=== PATIENT | female | born 1950 | race Caucasian/White ===

== ENCOUNTER → 2016-12-12 | Outpatient (CLI) | payer OTHER, BC ==
[~2016-12-12] MED LIST: ATV5 PO; CLID5CAP23 PO; CYCL-259 PO; EPIPEN0.3 M1 IM; FLNIN NAE; LEVO125T72 PO; LISI-461 PO; METO1TAB31 PO; MULTTAB58 PO; PRLSR20 PO; SERT-234 PO; SIMV20TA2 PO; VERA240C2 PO; ZNT/150 PO
[2016-12-12 13:46] LABS: ALT/SGPT 32 U/L (12-78); AST/SGOT 19 U/L (15-37); BASO % 0.2 %; BASO ABS # 0.02 K/uL (0-0.2); BLOOD UREA NITROGEN 16 mg/dl (7-18); BUN/CREATININE RATIO 25.6 (10-20); CALCIUM 9.6 mg/dl (8.5-10.1); CARBON DIOXIDE 29 mmol/L (21-32); CHLORIDE 106 mmol/L (98-107); COMPLETE YES; CREATININE 0.62 mg/dl (0.60-1.20); EOS % 1.1 %; GLUCOSE 101 mg/dl (70-99); HEMATOCRIT 43.2 % (37-47); IG% 0.6 %; LYMPH % 22.8 %; LYMPH ABS # 1.85 K/uL (1.2-3.4); MEAN CELL VOLUME 98.4 fL (80-100); MEAN CORPUSCULAR HEMOGLOBIN 33.7 pg (25-34); MEAN CORPUSCULAR HGB CONC 34.3 g/dl (32-36); MONO % 5.9 %; NEUT % 69.4 %; PLATELET COUNT 157 K/uL (130-400); POTASSIUM 4.4 mmol/L (3.5-5.1); RED BLOOD COUNT 4.39 M/uL (4.2-5.4); SODIUM 140 mmol/L (136-145); WHITE BLOOD COUNT 8.11 K/uL (4.8-10.8)
[2016-12-12 13:57] LABS: ALB/GLOB RATIO 1.2 (0.9-2); ALKALINE PHOSPHATASE 85 U/L (45-117); CHOLESTEROL 199 mg/dl (0-200); CHOLESTEROL/HDL RATIO 3.9; HDL CHOLESTEROL 51 mg/dl; LDL CHOLESTEROL CALCULATED 119 mg/dl; TRIGLYCERIDES 143 mg/dl (0-150); VERY LOW DENSITY LIPOPROT CALC 29 mg/dl
== END | disposition home or self-care (01) ==
LOC: C.LABBC 09:59
PROVIDERS: ATTEND Internal Medicine
DX: R00.2 Palpitations (principal); M81.0 Age-related osteoporosis without current pathological fracture

== ENCOUNTER → 2017-01-19 | Outpatient (CLI) | payer OTHER, BC ==
[~2017-01-19] MED LIST changes: +METO-478 PO; -METO1TAB31 PO
--- NOTE | 2017-01-20 08:29 | MAMMOGRAPHY REPORT ---
BILATERAL DIGITAL SCREENING MAMMOGRAM WITH CAD: 01/19/2017 CLINICAL HISTORY: Routine screening. Patient has no complaints. TECHNIQUE: Bilateral CC and MLO views were obtained. Current study was also evaluated with a Comput er Aided Detection (CAD) system. COMPARISON: Comparison is made to exams dated: 10/10/2015 mammogram, 11/17/2013 mammogram, 11/17/2013 ultrasound, 11/13/2013 mammogram, 08/29/2012 mammogram, and 08/24/2012 mammogram - [facility]. BREAST COMPOSITION: There are scattered areas of fibroglandular density in both breasts. FINDINGS: There is fluctuating nodularity in the breasts, most likely represent infiltrating cysts. There are scattered benign-appearing punctate microcalcifications. No suspicious mass, architectur al distortion or cluster of suspicious microcalcifications is seen. IMPRESSION: ACR BI-RADS CATEGORY 1: NEGATIVE There is no mammographic evidence of malignancy. A 1 year screening mammogram is recommended. The p atient will receive written notification of the results. Approximately 10% of breast cancers are not detected with mammography. A negative mammographic repor t should not delay biopsy if a clinically suggestive mass is present. Claire Roth M.D. ay/:01/19/2017 15:58:23 Software Qa Manager: Teresita CHEEMA(Kyra)(M), [facility] letter sent: Normal 1/2 BI-RADS Code: ACR BI-RADS Category 1: Negative
== END | disposition home or self-care (01) ==
LOC: C.MAMM 15:25
PROVIDERS: ATTEND Internal Medicine
DX: Z12.31 Encounter for screening mammogram for malignant neoplasm of breast (principal); M81.0 Age-related osteoporosis without current pathological fracture; M85.89 Other specified disorders of bone density and structure, multiple sites

== ENCOUNTER → 2017-02-08 | Outpatient (CLI) | payer OTHER, BC ==
[2017-02-08 13:20] LABS: THYROID STIMULATING HORMONE 1.12 uIu/ml (0.300-4.500)
[2017-02-09 16:00] LABS: ALBUMIN 4.3 G/DL (3.8-4.8); GAMMA GLOBULIN 0.8 G/DL (0.8-1.7); TOTAL PROTEIN 6.7 G/DL (6.2-8.3)
== END | disposition home or self-care (01) ==
LOC: C.LAB1850 11:29
PROVIDERS: ATTEND Internal Medicine Endocrinology, Diabetes & Metabolism
DX: E03.9 Hypothyroidism, unspecified (principal)

== ENCOUNTER → 2017-10-21 | Outpatient (CLI) | payer OTHER, BC ==
[2017-10-21 13:41] LABS: BASO % 0.3 %; BASO ABS # 0.02 K/uL (0-0.2); EOS % 1.6 %; EOS ABS # 0.13 K/uL (0-0.5); HEMOGLOBIN 14.3 g/dL (12.0-16.0); IG# 0.03 K/uL (0.00-0.02); LYMPH % 23.2 %; LYMPH ABS # 1.83 K/uL (1.2-3.4); MEAN CELL VOLUME 99.5 fL (80-100); MEAN CORPUSCULAR HEMOGLOBIN 33.1 pg (25-34); MEAN CORPUSCULAR HGB CONC 33.3 g/dl (32-36); MEAN PLATELET VOLUME 11.8 fL (7.4-10.4); MONO % 7.3 %; MONO ABS # 0.58 K/uL (0.11-0.59); NEUT % 67.2 %; NEUT ABS # 5.31 K/uL (1.4-6.5); PLATELET COUNT 142 K/uL (130-400); RED CELL DISTRIBUTION WIDTH CV 14.6 % (11.5-14.5); RED CELL DISTRIBUTION WIDTH SD 52.7 fL (36.4-46.3)
[2017-10-21 14:03] LABS: ALBUMIN 4.2 gm/dl (3.4-5.0); ALT/SGPT 39 U/L (12-78); AST/SGOT 24 U/L (15-37); BLOOD UREA NITROGEN 15 mg/dl (7-18); CALCIUM 9.6 mg/dl (8.5-10.1); CARBON DIOXIDE 27 mmol/L (21-32); CHOLESTEROL 188 mg/dl (0-200); CREATININE 0.65 mg/dl (0.60-1.20); GLUCOSE 97 mg/dl (70-99); POTASSIUM 4.1 mmol/L (3.5-5.1); SODIUM 139 mmol/L (136-145)
[2017-10-21 14:14] LABS: ALKALINE PHOSPHATASE 82 U/L (45-117); LDL CHOLESTEROL CALCULATED 112 mg/dl; TOTAL PROTEIN 7.8 gm/dl (6.4-8.2)
[2017-10-25 07:37] LABS: HEPATITIS C RNA TMA QUAL Not detected
== END | disposition home or self-care (01) ==
LOC: C.LABBC 10:01
PROVIDERS: ATTEND Physician Assistant Medical
DX: E03.9 Hypothyroidism, unspecified (principal); K58.9 Irritable bowel syndrome, unspecified; E78.5 Hyperlipidemia, unspecified; I10 Essential (primary) hypertension; T14.8XXA Other injury of unspecified body region, initial encounter; W57.XXXA Bitten or stung by nonvenomous insect and other nonvenomous arthropods, initial encounter; Z11.59 Encounter for screening for other viral diseases

== ENCOUNTER → 2018-01-20 | Outpatient (CLI) | payer OTHER, BC ==
--- NOTE | 2018-01-21 14:20 | MAMMOGRAPHY REPORT ---
BILATERAL DIGITAL SCREENING MAMMOGRAM TOMOSYNTHESIS WITH CAD: 01/20/2018 CLINICAL HISTORY: Routine screening. Patient has no complaints. TECHNIQUE: Breast tomosynthesis in addition to standard 2D mammography was performed. Current study was also evaluated with a Computer Aided Detection (CAD) system. COMPARISON: Comparison is made to exams dated: 01/19/2017 mammogram, 10/10/2015 mammogram, 11/17/2013 ul trasound, 11/13/2013 mammogram, 08/29/2012 mammogram, and 08/24/2012 mammogram - [facility]. BREAST COMPOSITION: There are scattered areas of fibroglandular density in both breasts. FINDINGS: No suspicious masses, calcifications, or areas of architectural distortion are noted in ei ther breast. There has been no significant interval change compared to prior exams. Small circumscri bed benign-appearing 5 mm mass within the right lower inner quadrant is stable. IMPRESSION: ACR BI-RADS CATEGORY 2: BENIGN There is no mammographic evidence of malignancy. A 1 year screening mammogram is recommended. The pa tient will receive written notification of the results. Approximately 10% of breast cancers are not detected with mammography. A negative mammographic report should not delay biopsy if a clinically suggestive mass is present. Elzbieta Montes M.D. /:01/20/2018 15:39:33 Fpga Design Engineer: Teresita Machuca, [facility] letter sent: Normal 1/2 BI-RADS Code: ACR BI-RADS Category 2: Benign
== END | disposition home or self-care (01) ==
LOC: C.MAMM 15:17
PROVIDERS: ATTEND Internal Medicine
DX: Z12.31 Encounter for screening mammogram for malignant neoplasm of breast (principal)

== ENCOUNTER 2018-01-23 10:27 | Emergency (ER) | payer OTHER, BC ==
[~2018-01-23] VITALS: Ht 157.5 cm; Wt 75.5 kg
[2018-01-23 10:35] VITALS: TEMP 36.6; O2SAT 95; Ht 157.5 cm; Wt 75.5 kg
[2018-01-23] MEDS ORDERED: SODIUM CHLORIDE 0.9% 1000ML 1,000 ML IV STA (10:41)
[2018-01-23] MEDS ORDERED: THIAMINE HCL 100 MG/ML 2 ML VIAL IV STA (10:41)
--- NOTE | 2018-01-23 10:51 | EMERGENCY ROOM VISIT NOTE ---
History Report prepared by Ale: Ashley Rodas Under the Supervision of: Dr. Casey Hale D.O. 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 She reports that she thinks she "is in Afib." She notes she went from taking 50 mg once a day to to 75 mg once a day of Metoprol a couple of days ago, but she notched her symptoms began before her medication change. She states she has SOB and pain in the center of her chest that sometimes radiates to her neck and jaw. Her chest discomfort began 6 months ago but it has worsened and she now has it every morning. She denies any leg swelling or dizziness when she stands up. The last time she took her Metoprol was this morning at 0700. She currently uses tobacco and drinks alcohol every day. The patient does not want to be put on blood thinners. 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 Review of Systems See HPI for pertinent positives & negatives. A total of 10 systems reviewed and were otherwise negative. Past Medical & Surgical Medical Problems: (1) Anemia (2) Anxiety (3) Benign hypertension (4) Hyperlipidemia (5) Hypothyroidism (6) IBS (7) Orthopedic surgery Family History Heart disease Social History Smoking Status: Current Every Day Smoker Alcohol Use: occasionally Drug Use: none Marital Status: Occupation Status: employed Current/Historical Medications Scheduled , 0.3 MG IM UD Cyclobenzaprine Hcl (Flexeril), 1 TAB PO HS Levothyroxine Sodium (Synthroid), 125 MCG PO DAILY Lisinopril (Zestril), 20 MG PO DAILY Lorazepam (Ativan), 0.5 MG PO PRN Metoprolol Succ (Toprol Xl) (Toprol-Xl), 75 MG PO DAILY Multiple Vitamin (Multivitamin), 1 TAB PO DAILY Omeprazole (Prilosec), 20 MG PO QAM Ranitidine Hcl (Zantac), 150 MG PO HS Sertraline (Zoloft), 100 MG PO DAILY Verapamil Hcl (Verapamil Hcl Er), 240 MG PO HS Scheduled PRN Chlordiazepoxide/Clidinium (Librax 5MG/2.5MG), 1 EA PO for IBS Miscellaneous Medications Fluticasone Propionate (Nasal) (Flonase Allergy Relief) Allergies Coded Allergies: Guar Gum (Verified Allergy, Severe, ANAPHYLAXIS, 09/16/16) Shellfish (Verified Allergy, Severe, ANAPHYLAXIS, 09/16/16) Amoxicillin (Unverified Allergy, Unknown, FACE, TAONGUE, AND LIP SWELLING , 09/16/16) Ascorbate (Verified Allergy, Unknown, "STRONG CHEMICAL SMELLS" RXN?, 09/16) Aspartame (Unverified Allergy, Unknown, FACE, TAONGUE, AND LIP SWELLING, 09/16/16) Bee Venom (Verified Allergy, Unknown, UNKNOWN, 09/16/16) Clavulanic Acid (Unverified Allergy, Unknown, FACE, TAONGUE, AND LIP SWELLING, 09/16/16) Guaifenesin (Unverified Allergy, Unknown, FACE, TAONGUE, AND LIP SWELLING , 09/16/16) Iron (Verified Allergy, Unknown, "STRONG CHEMICAL SMELLS" RXN?, 09/16/16) NSAIDs (Verified Allergy, Unknown, ., 09/16/16) Procaine (Verified Allergy, Unknown, "NOVOCAIN" ALLERGY, 09/16/16) Physical Exam Vital Signs Date Time Temp Pulse Resp B/P (MAP) Pulse Ox O2 Delivery O2 Flow Rate FiO2 01/23/18 12:30 66 16 135/81 01/23/18 12:09 76 18 131/75 94 Room Air 01/23/18 11:17 56 16 117/68 95 Room Air 01/23/18 10:42 55 01/23/18 10:35 95 Room Air 01/23/18 10:35 95 Room Air 01/23/18 10:35 96 Room Air 01/23/18 10:35 36.6 50 18 122/99 95 Room Air Physical Exam GENERAL: Patient is awake, alert, and in no acute distress. Patient is resting comfortably and showing no signs of anxiety EYES: The conjunctivae are clear. The pupils are round and reactive. EARS, NOSE, MOUTH AND THROAT: The nose is without any evidence of any deformity. Mucous membranes are moist tongue is midline NECK: The neck is nontender and supple. RESPIRATORY: Lung sounds were diminished throughout with scattered rhonchi. CARDIOVASCULAR: Heart is bradycardic but regular. No definite murmur noted. GASTROINTESTINAL: The abdomen is soft. Bowel sounds are present in all quadrants. Abdomen is nontender MUSCULOSKELETAL/EXTREMITIES: There is no evidence of gross deformity full range of motion is noted in the hips and shoulders SKIN: There is no obvious evidence of any rash. There are no petechiae, pallor or cyanosis noted. NEUROLOGIC: Patient is awake alert and oriented x3 strength is symmetric patellar reflexes are 2+ bilaterally Medical Decision & Procedures ER Provider Diagnostic Interpretation: Radiology results as stated below per my review and radiologist interpretation: CHEST ONE VIEW PORTABLE HISTORY: 67 years-old Female EVALUATE ALTERED MENTAL STATUS/WEAKNESS acute altered mental status with weakness COMPARISON: Chest radiograph 09/08/2016 TECHNIQUE: Portable AP view of the chest FINDINGS: Cardiac silhouette is mildly enlarged. Atherosclerosis of the aorta. No pneumothorax, pleural effusion, focal airspace consolidation or overt pulmonary edema. Bones of the chest appear grossly intact. IMPRESSION: Cardiomegaly without acute process. The above report was generated using voice recognition software. It may contain grammatical, syntax or spelling errors. Electronically signed by: Willis Faulkner M.D. 01/23/2018 11:03 AM Laboratory Results 01/23/18 10:42 Red Blood Count 4.36, Mean Corpuscular Volume 97.5, Mean Corpuscular Hemoglobin 33.0, Mean Corpuscular Hemoglobin Concent 33.9, Mean Platelet Volume 11.5, Neutrophils (%) (Auto) 67.6, Lymphocytes (%) (Auto) 22.7, Monocytes (%) (Auto) 7.6, Eosinophils (%) (Auto) 1.4, Basophils (%) (Auto) 0.2, Neutrophils # (Auto) 7.06, Lymphocytes # (Auto) 2.37, Monocytes # (Auto) 0.79, Eosinophils # (Auto) 0.15, Basophils # (Auto) 0.02 01/23/18 10:42 Test 01/23/18 10:42 01/23/18 11:45 White Blood Count 10.44 K/uL (4.8-10.8) Red Blood Count 4.36 M/uL (4.2-5.4) Hemoglobin 14.4 g/dL (12.0-16.0) Hematocrit 42.5 % (37-47) Mean Corpuscular Volume 97.5 fL (80-100) Mean Corpuscular Hemoglobin 33.0 pg (25-34) Mean Corpuscular Hemoglobin Concent 33.9 g/dl (32-36) Platelet Count 163 K/uL (130-400) Mean Platelet Volume 11.5 fL (7.4-10.4) Neutrophils (%) (Auto) 67.6 % Lymphocytes (%) (Auto) 22.7 % Monocytes (%) (Auto) 7.6 % Eosinophils (%) (Auto) 1.4 % Basophils (%) (Auto) 0.2 % Neutrophils # (Auto) 7.06 K/uL (1.4-6.5) Lymphocytes # (Auto) 2.37 K/uL (1.2-3.4) Monocytes # (Auto) 0.79 K/uL (0.11-0.59) Eosinophils # (Auto) 0.15 K/uL (0-0.5) Basophils # (Auto) 0.02 K/uL (0-0.2) RDW Standard Deviation 49.2 fL (36.4-46.3) RDW Coefficient of Variation 13.8 % (11.5-14.5) Immature Granulocyte % (Auto) 0.5 % Immature Granulocyte # (Auto) 0.05 K/uL (0.00-0.02) Prothrombin Time 10.6 SECONDS (9.0-12.0) Prothromb Time International Ratio 1.0 (0.9-1.1) Activated Partial Thromboplast Time 28.3 SECONDS (21.0-31.0) Partial Thromboplastin Ratio 1.1 Anion Gap 5.0 mmol/L (3-11) Est Creatinine Clear Calc Drug Dose 73.1 ml/min Estimated GFR () 101.1 Estimated GFR (Non- 87.3 BUN/Creatinine Ratio 23.7 (10-20) Calcium Level 9.7 mg/dl (8.5-10.1) Magnesium Level 1.8 mg/dl (1.8-2.4) Total Bilirubin 0.4 mg/dl (0.2-1) Direct Bilirubin 0.1 mg/dl (0-0.2) Aspartate Amino Transf (AST/SGOT) 17 U/L (15-37) Alanine Aminotransferase (ALT/SGPT) 38 U/L (12-78) Alkaline Phosphatase 103 U/L (45-117) Total Creatine Kinase 38 U/L (26-192) Creatine Kinase MB 1.5 ng/ml (0.5-3.6) Creatine Kinase MB Ratio 3.9 (0-3.0) Troponin I < 0.015 ng/ml (0-0.045) Total Protein 7.3 gm/dl (6.4-8.2) Albumin 3.9 gm/dl (3.4-5.0) Thyroid Stimulating Hormone (TSH) 1.550 uIu/ml (0.300-4.500) Urine Color DK YELLOW Urine Appearance CLEAR (CLEAR) Urine pH 5.5 (4.5-7.5) Urine Specific [place] 1.024 (1.000-1.030) Urine Protein NEG (NEG) Urine Glucose (UA) NEG (NEG) Urine Ketones NEG (NEG) Urine Occult Blood NEG (NEG) Urine Nitrite NEG (NEG) Urine Bilirubin NEG (NEG) Urine Urobilinogen NEG (NEG) Urine Leukocyte Esterase NEG (NEG) Laboratory results per my review. Medications Administered Medications (Trade) Dose Ordered Sig/Fady Route Start Time Stop Time Status Last Admin Dose Admin Sodium Chloride 1,000 ml @ 999 mls/hr Q1H1M STAT IV 01/23/18 10:41 01/23/18 11:41 DC 01/23/18 11:17 999 MLS/HR Thiamine HCl (Vitamin B-1 Inj) 100 mg NOW STAT IV 01/23/18 10:41 01/23/18 10:42 DC 01/23/18 11:17 100 MG ECG Per My Interpretation Indication: palpitations Rate (beats per minute): 50 Rhythm: sinus bradycardia (With junctional escape beats) Findings: ST depression (Lateral), other (incomplete RBBB pattern noted) Comparison ECG Date: 09/16/16 Change: no significant change (Changes are new compared to 09/16/16 ) ED Course 1040: The patient was evaluated in room C6. A complete history and physical examination were performed. 1041: Ordered Thiamine HCl 100 mg IV, Sodium Chloride 1000 ml @ 999 mls/hr IV 1224: Upon reevaluation, the patient is feeling better. I discussed the results and treatment plan with her. She verbalized agreement of the treatment plan. She was discharged home. Medical Decision Prior records/ancillary studies reviewed. Triage Nursing notes reviewed. The patient's history was concerning for palpitations. Differential diagnosis: Etiologies such as premature contractions, electrolyte abnormality, cardiac dysrhythmia, thyroid dysfunction, pulmonary embolism, infection, gastrointestinal, as well as others were entertained. The patient is a 67-year-old female who presented to the emergency department for an evaluation of palpitations. The patient states that she has been having problems with palpitations recently. She was felt to be having runs of atrial fibrillation. She has an appointment with a sports broadcaster coming up. Upon arrival to the emergency department she was found to be in sinus bradycardia with junctional escape beats. The patient was treated with IV fluids as well as IV thiamine. The patient was reevaluated multiple times. Verted to normal sinus rhythm. The only change in the patient's medication is that she had her beta-cyndi recently increased. She was encouraged to return to the previous dose of her beta-cyndi and follow-up with her primary care physician this week. She was also encouraged to continue her appointment with her primary sports broadcaster group. She was also encouraged to rest and avoid any strenuous activity try to curtail her alcohol use and return to the emergency department immediately symptoms change worsen or the need arises. Medication Reconcilliation Current Medication List: was personally reviewed by me Blood Pressure Screening Patient's blood pressure: Normal blood pressure Blood pressure disposition: Did not require urgent referral Impression Primary Impression: Palpitations Additional Impression: Bradycardia Scribe Attestation The scribe's documentation has been prepared under my direction and personally reviewed by me in its entirety. I confirm that the note above accurately reflects all work, treatment, procedures, and medical decision making performed by me. Departure Information Dispostion Home / Self-Care Referrals Satish Narayanan M.D. (PCP) Patient Instructions My [facility] Additional Instructions Follow-up with the sports broadcaster as scheduled. Rest and avoid any strenuous activity. Return to the emergency department immediately if symptoms change worsen or the need arises. I would recommend going back to taking your original dose of Lopressor (metoprolol). Return to the emergency department immediately if symptoms change worsen or the need arises. Problem Qualifiers
[2018-01-23 10:54] LABS: BASO % 0.2 %; BASO ABS # 0.02 K/uL (0-0.2); EOS % 1.4 %; EOS ABS # 0.15 K/uL (0-0.5); HEMATOCRIT 42.5 % (37-47); HEMOGLOBIN 14.4 g/dL (12.0-16.0); IG# 0.05 K/uL (0.00-0.02); LYMPH % 22.7 %; LYMPH ABS # 2.37 K/uL (1.2-3.4); MEAN CELL VOLUME 97.5 fL (80-100); MEAN CORPUSCULAR HGB CONC 33.9 g/dl (32-36); MEAN PLATELET VOLUME 11.5 fL (7.4-10.4); MONO % 7.6 %; MONO ABS # 0.79 K/uL (0.11-0.59); NEUT % 67.6 %; NEUT ABS # 7.06 K/uL (1.4-6.5); PLATELET COUNT 163 K/uL (130-400); RED CELL DISTRIBUTION WIDTH CV 13.8 % (11.5-14.5); RED CELL DISTRIBUTION WIDTH SD 49.2 fL (36.4-46.3); WHITE BLOOD COUNT 10.44 K/uL (4.8-10.8)
--- NOTE | 2018-01-23 11:04 | DIAGNOSTIC IMAGING REPORT ---
CHEST ONE VIEW PORTABLE HISTORY: 67 years-old Female EVALUATE ALTERED MENTAL STATUS/WEAKNESS acute altered mental status with weakness COMPARISON: Chest radiograph 09/08/2016 TECHNIQUE: Portable AP view of the chest FINDINGS: Cardiac silhouette is mildly enlarged. Atherosclerosis of the aorta. No pneumothorax, pleural effusion, focal airspace consolidation or overt pulmonary edema. Bones of the chest appear grossly intact. IMPRESSION: Cardiomegaly without acute process. The above report was generated using voice recognition software. It may contain grammatical, syntax or spelling errors. Electronically signed by: Willis Faulkner M.D. 01/23/2018 11:03 AM Dictated Date/Time: 01/23/2018 11:02 AM
[2018-01-23 11:05] LABS: PTT PATIENT 28.3 SECONDS (21.0-31.0)
[2018-01-23 11:12] LABS: ALBUMIN 3.9 gm/dl (3.4-5.0); ALT/SGPT 38 U/L (12-78); AST/SGOT 17 U/L (15-37); BLOOD UREA NITROGEN 17 mg/dl (7-18); CALCIUM 9.7 mg/dl (8.5-10.1); CARBON DIOXIDE 27 mmol/L (21-32); CREATININE 0.72 mg/dl (0.60-1.20); GLUCOSE 114 mg/dl (70-99); POTASSIUM 4.4 mmol/L (3.5-5.1); SODIUM 139 mmol/L (136-145)
[2018-01-23 11:23] LABS: ALKALINE PHOSPHATASE 103 U/L (45-117); CKMB 1.5 ng/ml (0.5-3.6); TOTAL PROTEIN 7.3 gm/dl (6.4-8.2)
[2018-01-23 12:09] VITALS: O2SAT 94
[2018-01-23] MEDS ORDERED: METO50TA8 PO ×2 (12:13→12:14)
[2018-01-23] MEDS ORDERED: LORA-741 PO (12:15)
[2018-01-23] MEDS ORDERED: FLUT0.15 (12:15)
[2018-01-23] MEDS ORDERED: CYCL10TA6 PO (12:15)
[2018-01-23 12:30] VITALS: BP 135/81; PULSE 66
== END 2018-01-23 12:47 | disposition home or self-care (01) ==
LOC: C.EDB 10:28 → C.EDC 12:47
DX: R00.2 Palpitations (principal); F17.210 Nicotine dependence, cigarettes, uncomplicated; D64.9 Anemia, unspecified; F41.9 Anxiety disorder, unspecified; I10 Essential (primary) hypertension; E78.5 Hyperlipidemia, unspecified; E03.9 Hypothyroidism, unspecified; K58.9 Irritable bowel syndrome, unspecified; Z79.899 Other long term (current) drug therapy; Z91.013 Allergy to seafood; Z88.0 Allergy status to penicillin; Z88.8 Allergy status to other drugs, medicaments and biological substances; Z91.030 Bee allergy status; Z91.018 Allergy to other foods